=== PATIENT | male | born 1965 | race Caucasian/White ===

== ENCOUNTER 2017-02-04 08:12 | Emergency (ER) | payer BC ==
[2017-02-04] MEDS ORDERED: KETOROLAC TROMETHAMINE 30 MG/ML VIAL IM ONE (08:38)
[2017-02-04] MEDS ORDERED: ORPHENADRINE CITRATE 30 MG/ML VIAL IM ONE (08:39)
[2017-02-04] MEDS ORDERED: ORPHENADRINE CITRATE 30 MG/ML VIAL ONE (08:44)
[2017-02-04] MEDS ORDERED: KETOROLAC TROMETHAMINE 30 MG/ML VIAL ONE (08:44)
--- OUTSIDE RECORDS SUMMARY | 2017-02-04 08:44 | XMS REPORT | Continuity of Care Document ---
:1965 Author Organization [facility] ([facility]) Address [address] [place] [address] Phone [phone] Care Team Providers Name Role Phone Provider, No-Primary Care Primary Care Provider Unavailable Source Comments This disclosure is being made pursuant to the Care Everywhere program, applicable federal and state laws, and may not contain all informaitonavailable regarding this patient.[facility] ([facility]) Active Allergies and Adverse Reactions No Known Allergies Current Medications Prescription Sig. Disp. Refills Start Date End Date Status PARoxetine 20 mg tablet Take 1 Tab by mouth 30 Tab 5 06/13/2012 Active daily. Indications: DEPRESSION Active Problems Not on file Social History Tobacco Use Types Packs/Day Years Used Date Never Assessed Last Filed Vital Signs Vital Sign Reading Time Taken Blood Pressure 124/84 06/13/2012 9:21 AM CDT Pulse 68 06/13/2012 9:21 AM CDT Temperature 36.9 C (98.4 F) 06/13/2012 9:21 AM CDT Respiratory Rate 16 06/13/2012 9:21 AM CDT Height 1.791 m (5' 10.5") 06/13/2012 9:21 AM CDT Weight 86.546 kg (190 lb 12.8 oz) 06/13/2012 9:21 AM CDT Body Mass Index 26.98 06/13/2012 9:21 AM CDT Oxygen Saturation - - Plan of Care Health Maintenance Due Date Last Done Comments Hepatitis B Vaccine (1 of 3 - Primary Series) 1965 Tdap Vaccine 12/15/1978 Lipid Disorder Screening 12/15/1985 MMR Vaccine 12/15/1985 Td Vaccine 12/15/1985 Influenza Vaccine: Seasonal (#1) 03/26/2016 Results from Last 3 Months Not on file
[2017-02-04 09:44] VITALS: BP 105/66
--- NOTE | 2017-02-04 10:18 | ERNOTE ---
Back Pain ER HPI Date of Service: 02/04/17 Time Seen by Provider: 02/04/17 08:33 Source: patient Exam Limitations: no limitations Immunizations: IMMUNIZATION HX History of Influenza Vaccine Yes Allergies/Adverse Reactions: Allergies No Known Allergies Allergy (Verified 02/04/17 08:24) Home Medications: HOME MEDICATIONS NK [No Home Medication] 04/30/14 [Last Taken Unknown] Narrative: Patient presents to the ED for low back pain. He has been having waxing and waning LBP for 9 weeks. Has seen PCP, no improvement. Pain mid low back. It has been worse over the last several days. He relates pain that radiated into his bilateral buttock. No pain into legs. Pain worse with movement and turning. No loss of bowel or bladder control. No fever or vomiting. No acute focal N/T/W. Conservative measures have not been helping. Timing: Reports: constant, other - fluctuating intensity Quality/Severity: Reports: severe Location of pain: Reports: lower back Activities at Onset: Reports: other - lifting Possible Precipitating Factor: Reports: lifting Modifying Factors - (Improves): Reports: nothing Modifying Factors - (Worsens): Reports: movement to right, movement to left, movement flexion Associated Symptoms: Denies: fever/chills, constipation/incontinence, nausea/ vomiting, problems urinating, difficulty walking, numbess/weakness in legs Review of Systems - Review of Systems Constitutional: Absent: fever Respiratory: Absent: shortness of breath Gastrointestinal/Abdominal: Absent: abdominal pain Genitourinary: Absent: dysuria Musculoskeletal: Present: back pain Neurological: Absent: weakness - Patient's Past Medical History Patient History - Medical: No pertinent hx Patient History - Cardiac/Respiratory: No pertinent hx Patient History - Cancer: No Hx of Cancer Patient History - Surgical Procedures: No surgical history Patient History - Other: None - Social History Living Situations: home Psych History: No pertinent hx Alcohol Use: none Drug Use: none - Immunizations History of Influenza Vaccine: Yes Physical Exam - Physical Exam General Appearance: Present: alert, no apparent distress Eye Exam: Normal inspection: bilateral, PERRL: bilateral Ears, Nose, Throat: Present: normal ENT inspection Neck: Present: normal inspection Respiratory: Present: no respiratory distress, no accessory muscle use, lungs clear Cardiovascular/Chest: Present: regular rate, rhythm Gastrointestinal/Abdominal: Present: normal bowel sounds, nontender, nondistended, soft. Absent: tenderness Rectal Exam: Present: other - Normal rectal exam. Normal tone. No masses. Absent: decreased tone, mass, fecal impaction Back Exam: Present: other - mild low back tenderness. Extremity Exam: Present: normal inspection Neurological Exam: Present: alert, normal mood/affect, no motor/sensory deficits , other - Ptellar tendon reflexes equal and symmetric. Gait stable. Full dorsi and plactar flexion strngth at ankles. Strength LEs full. Sensation to LT intact throughout. No focla motor deficits. No suggestion of cauda equina syndrome. Skin Exam: Absent: skin rash ED Progress - Vital Signs Patient's Vital Signs:: I have reviewed the patient's vital signs. Vital Signs: Vital Signs 02/04/17 02/04/17 02/04/17 08:18 09:00 09:13 Temperature 36.0 C L 36.0 C L Pulse Rate 83 72 75 Respiratory 12 13 Rate Blood Pressure 110/81 161/63 158/61 O2 Sat by Pulse 98 98 99 Oximetry 02/04/17 02/04/17 09:27 09:44 Temperature Pulse Rate 66 68 Respiratory Rate Blood Pressure 132/58 105/66 O2 Sat by Pulse 98 97 Oximetry - X-Ray X-Ray #1 X-Ray: lumbosacral Interpretation: Reviewed by me X-ray Comments: I reviewed x-ray report - Progress/Reassessment Chief Complaint: Back Pain Progress Note-Subjective: 02/04/17 10:14 He wanted MRI scan. Unable to get one today here. Attempted outpatietn MRI scheduling but they apparently were able to find another hospital for MRI today and left for that. I offered him pain medications but he declined and just wanted to go to the other hospital to get his MRI. Clinically no caudaequina syndrome and nothing to suggest infectious process(abscess or diskitis). I discussed warnign signs and reasons to return as well as the need for close f/u. Departure Clinical Impression: Low back pain - Departure Disposition: Home self-care Condition: Stable Instructions: Back Pain, Adult Additional Instructions: Rest. Ibuprofen. I am happy to prescribe you pain medications if you wish. See your doctor as soon as possible. Return here for fever, increased pain, numbness, tingling, weakness, loss og bowel or bladder control or if your condition worsens or changes in any way.
== END 2017-02-04 10:15 | disposition home or self-care (01) ==
LOC: ER 08:12
DX: M54.5 Low back pain (principal)